=== PATIENT | female | born 2000 | race Two or more races ===

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

== ENCOUNTER 2020-12-19 11:52 | Emergency (ER) | payer OTHER ==
[~2020-12-19] VITALS: Ht 167.6 cm; Wt 70.3 kg
--- NOTE | 2020-12-19 12:04 | NUR ---
UNABLE TO PROVIDE URINE SPECIMEN THIS TIME.
--- NOTE | 2020-12-19 12:05 | NUR ---
THE PATIENT BIBS FOR C/O BLOOD IN THE URINE AND BURNING SENSATION UPON URINATION STARTED. RATES PAIN 5/10. WILL CONTINUE TO MONITOR THE PATIENT.
[2020-12-19 12:07] VITALS: BP 109/70
[2020-12-19 13:15] LABS: BACTERIA,URINE Few /HPF (None Seen); BILIRUBIN,URINE Negative (NEGATIVE); COLOR,URINE YELLOW (YELLOW); LEUKOCYTE ESTERASE ,URINE Negative (NEGATIVE); NITRITE, URINE Positive (NEGATIVE); PROTEIN,URINE Trace mg/dl (NEGATIVE); SQUAMOUS EPITHELIAL CELL,UR Few /HPF (None Seen); UGLUCOSE 100 MG/DL mg/dL (NEGATIVE)
[2020-12-19] MEDS ORDERED: CEPH500C2 PO (13:31)
--- NOTE | 2020-12-19 13:38 | NUR ---
Patient discharged to home in stable condition. Written and verbal after care instructions given. Patient verbalizes understanding of instruction.
== END 2020-12-19 13:38 | disposition home or self-care (01) ==
LOC: ER 11:52
DX: N39.0 Urinary tract infection, site not specified (principal); Z79.899 Other long term (current) drug therapy
CPT/HCPCS: 81001; 87086-TC; 87186-TC

== ENCOUNTER 2021-10-18 11:50 | Emergency (ER) | payer OTHER ==
[~2021-10-18] VITALS: Ht 165.1 cm; Wt 72.6 kg
[~2021-10-18 11:50] MED LIST: CEPH500C2 PO
[2021-10-18 12:55] VITALS: BP 115/68
--- NOTE | 2021-10-18 14:00 | NUR ---
Finger Splint applied to affected area by RADHA Mcclelland
--- NOTE | 2021-10-18 14:08 | NUR ---
Patient discharged to home in stable condition. Written and verbal after care instructions given. Patient verbalizes understanding of instruction.
== END 2021-10-18 14:07 | disposition home or self-care (01) ==
LOC: ER 11:55
DX: M79.645 Pain in left finger(s) (principal); Z79.899 Other long term (current) drug therapy
CPT/HCPCS: 73140-TC